=== PATIENT | female | born 1975 | race Caucasian/White ===

== ENCOUNTER → 2020-02-10 10:16 | Outpatient (BNVA) | payer OTHER, SELFPAY | PROVIDERS: Family Provider Family Medicine; PCP Family Medicine; Visit Provider Family Medicine | DX: E03.9 Hypothyroidism, unspecified (principal); R82.90 Unspecified abnormal findings in urine | CPT/HCPCS: 81000 ==

== ENCOUNTER → 2020-06-06 15:37 | Outpatient (BNVA) | payer OTHER, SELFPAY | PROVIDERS: Family Provider Family Medicine; PCP Family Medicine; Visit Provider Family Medicine | DX: E03.9 Hypothyroidism, unspecified (principal); S01.85XA Open bite of other part of head, initial encounter; W54.0XXA Bitten by dog, initial encounter; L91.0 Hypertrophic scar; F31.9 Bipolar disorder, unspecified; G44.89 Other headache syndrome; G56.01 Carpal tunnel syndrome, right upper limb; F43.9 Reaction to severe stress, unspecified | CPT/HCPCS: 80178; 84443 ==

== ENCOUNTER → 2021-02-22 13:03 | Outpatient (BNVA) | payer OTHER, SELFPAY | PROVIDERS: Family Provider Family Medicine; PCP Family Medicine; Visit Provider Family Medicine | DX: E03.9 Hypothyroidism, unspecified (principal); F31.9 Bipolar disorder, unspecified; K21.9 Gastro-esophageal reflux disease without esophagitis; Z13.6 Encounter for screening for cardiovascular disorders; Z13.1 Encounter for screening for diabetes mellitus | CPT/HCPCS: 80053; 80061; 80178; 84439; 84443; 84481 ==

== ENCOUNTER → 2022-12-12 10:12 | Outpatient (BNVA) | payer OTHER, SELFPAY | PROVIDERS: Family Provider Family Medicine; PCP Family Medicine; Visit Provider Family Medicine | DX: F31.9 Bipolar disorder, unspecified (principal); F43.10 Post-traumatic stress disorder, unspecified; E03.9 Hypothyroidism, unspecified; Z13.220 Encounter for screening for lipoid disorders; Z13.6 Encounter for screening for cardiovascular disorders; Z13.1 Encounter for screening for diabetes mellitus; N95.1 Menopausal and female climacteric states; Z53.20 Procedure and treatment not carried out because of patient's decision for unspecified reasons | CPT/HCPCS: 80053; 80061; 80178; 83001; 83002; 84439; 84443; 84481 ==